=== PATIENT | female | born 1960 | race Hispanic/Latino ===

== ENCOUNTER → 2018-08-15 | Outpatient (CLI) | payer BC ==
[~2018-08-15] MED LIST: vit e PO
--- NOTE | 2018-08-15 10:25 | Diagnostic Imaging Report ---
PROCEDURE:X-RAY ABDOMEN - KUB COMPARISON:KUB 08/10/2018. INDICATIONS:calculus of kidney DISCUSSION: A 1.2 cm calculus projects over the lower pole of the right renal shadow. No additional calcifications project over the kidneys, expected ureteral course, or bladder. Bilateral tubal ligation devices are again noted. Bowel gas pattern is nonobstructive. No acute bony abnormality. Dextroscoliosis of the lumbar spine. IMPRESSION: Similar appearance of 1.2 cm right renal calculus. Dictated by: HENRY PAN M.D. on 08/15/2018 at 10:34 Electronically approved by: HENRY PAN M.D. on 08/15/2018 at 10:34
== END ==
LOC: RAD 09:33
PROVIDERS: ATTEND Urology
DX: N20.0 Calculus of kidney (principal)
CPT/HCPCS: 74018

== ENCOUNTER → 2018-08-24 | Day surgery (SDC) | payer BC ==
[~2018-08-24] MED LIST changes: +CEFTRIAXONE SOD 1 GM VIAL ONE; +DESFLURANE 240 ML BTL INH ONE; +DEXAMETHASONE SOD PHOS INJ 4 MG/ML VIAL ONE; +FENTANYL CITRATE/PF 100MCG/2 ML INJ ONE; +LIDOCAINE HCL 2% LOCAL INJ 5 ML SDV VIAL INJ ONE; +MIDAZOLAM HCL 2 MG/2 ML VIAL ONE; +ONDANSETRON HCL INJ 2 MG/ML VIAL ONE; +PROPOFOL IV EMULSION 10 MG/ML 20 ML VIAL ONE; +ROCURONIUM BROMIDE 10 MG/ML 5ML VIAL ONE
--- OUTSIDE RECORDS SUMMARY | 2018-08-24 11:28 | XMS REPORT ---
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 Allergies, Adverse Reactions, Alerts This patient has no known allergies or adverse reactions. Medications This patient has no known medications. Results Test Description Test Time Test Comments Text Results Atomic Results Result Comments ABDOMEN-1VIEW (KUB) 2018-08-15 10:34:00 [place] [address] Patient Name: FEROZ WATTS MR #: [id number] : 1960 Age/Sex: 58/F Req #: [id number] Adm Physician: Ordered by: ANNAMARIA GARIBAY MD Report #: [id number] Location: [facility] Room/Bed: Procedure: [id number] DX/ABDOMEN-1VIEW (KUB) Exam Date: Exam Time: REPORT STATUS: Signed PROCEDURE: X-RAY ABDOMEN - KUB COMPARISON: KUB 08/10/2018. INDICATIONS: calculus of kidney DISCUSSION: A 1.2 cm calculus projects over the lower pole of the right renal shadow. No additional calcifications project over the kidneys, expected ureteral course, or bladder. Bilateral tubal ligation devices are again noted. Bowel gas pattern is nonobstructive. No acute bony abnormality. Dextroscoliosis of the lumbar spine. IMPRESSION: Similar appearance of 1.2 cm right renal calculus. Dictated by: HENRY PAN M.D. on 08/15/2018 at 10:34 Electronically approved by: HENRY PAN M.D. on 08/15/2018 at 10:34 Dictated By: HENRY PAN MD [id number] Transcribed By: JEAN on 08/15/18 1034 COPY TO: ANNAMARIA GARIBAY MD ABDOMEN-1VIEW (KUB) 2018-08-10 13:26:00 [place] [address] Patient Name: FEROZ WATTS MR #: [id number] : 1960 Age/Sex: 58/F Req #: [id number] Adm Physician: Ordered by: ANNAMARIA GARIBAY MD Report #: [id number] Location: [facility] Room/Bed: Procedure: [id number] DX/ABDOMEN-1VIEW (KUB) Exam Date: 08/10/18 Exam Time: 1130 REPORT STATUS: Signed Exam: Abdominal film Clinical History: Renal calculus Comparison: None. DISCUSSION: 1.2 cm ovoid calculus projects over the lower pole of the right renal shadow. No additional calcifications project over the renal shadows or expected ureteral courses. Bilateral tubal ligation devices are noted particularly over the pelvis. Bowel gas pattern is nonobstructive. No mass effect or organomegaly. Regional skeletal structures are intact. Dextroscoliosis of the lumbar spine. IMPRESSION: 1.2 cm right renal calculus. Signed by: Dr. Sienna Galvan M.D. on 08/10/2018 1:29 PM Dictated By: SIENNA GALVAN MD 28 Transcribed By: NICOLAS on 08/10/181328 COPY TO: ANNAMARIA GARIBAY MD Mammo Digital Mammography Screening 2018-07-14 12:13:27 CLINICAL INDICATION: This is a routine annual screening mammogram. The patient has no complaints.MODALITY: Siemens Inspiration Full Field Digital MammographyTECHNIQUE: Digital acquisition of the breasts is performed on the ACR accredited Full Field Digital Mammography Unit. Computer Assisted Detection (CAD) is then accomplished using [employer]. Imaging of the bilateral breasts is performed.FINDINGS:COMPARISON STUDY: NoneThe breasts are heterogeneously dense. This may lower the sensitivity of mammography. There are no suspicious masses, calcifications or architectural distortion in either breast.IMPRESSION:No mammographic evidence of malignancy. RECOMMENDATION: Routine annual screening mammogram in 1 year is recommended.Category: BIRADS 1 - Negative. For internal use only N:12
--- NOTE | 2018-08-24 14:46 | Operative Report ---
DATE OF PROCEDURE: August 24, 2018 PREOPERATIVE DIAGNOSIS: Right kidney stone. POSTOPERATIVE DIAGNOSIS: Right kidney stone. PROCEDURES PERFORMED 1. Staged right-sided shockwave lithotripsy. 2. Supervision of fluoroscopy. ANESTHESIA: General. ESTIMATED BLOOD LOSS: Minimal. COMPLICATIONS: None. INDICATIONS: Ms. Murphy is a 58-year-old female found to have a right-sided kidney stone. She and I had a long discussion regarding the alternatives, risks and benefits including doing nothing, shockwave lithotripsy, ureteroscopy, percutaneous surgery and open surgery. She voiced understanding of the options and alternatives, the risks and the benefits and elected to proceed. PROCEDURE IN DETAIL: After informed consent was obtained, the patient was taken to the operative suite and placed supine on the operative table, underwent general anesthesia by the anesthesia services. The stone was localized in the X, Y, and Z planes. A treatment was performed per treatment report. Patient tolerated the procedure well and was transported to the recovery room in excellent condition. SUPERVISION OF FLUOROSCOPY: I was present throughout the entire procedure and supervised fluoroscopy. There was no radiologist present. Fluoroscopy was performed per treatment report. Job#: [id number] cc:SHIREEN MARTINES MD
[2018-08-24 15:20] VITALS: BP 125/68
== END | disposition home or self-care (01) ==
LOC: OR 11:26
PROVIDERS: ATTEND Urology
DX: N20.0 Calculus of kidney (principal); N39.0 Urinary tract infection, site not specified; I10 Essential (primary) hypertension; R31.29 Other microscopic hematuria; Z01.810 Encounter for preprocedural cardiovascular examination
CPT/HCPCS: 50590; 93005; J0696; J1100; J2001; J2250; J2405; J2704

== ENCOUNTER → 2018-09-26 | Outpatient (CLI) | payer BC ==
[~2018-09-26] MED LIST changes: -CEFTRIAXONE SOD 1 GM VIAL ONE; -DESFLURANE 240 ML BTL INH ONE; -DEXAMETHASONE SOD PHOS INJ 4 MG/ML VIAL ONE; -FENTANYL CITRATE/PF 100MCG/2 ML INJ ONE; -LIDOCAINE HCL 2% LOCAL INJ 5 ML SDV VIAL INJ ONE; -MIDAZOLAM HCL 2 MG/2 ML VIAL ONE; -ONDANSETRON HCL INJ 2 MG/ML VIAL ONE; -PROPOFOL IV EMULSION 10 MG/ML 20 ML VIAL ONE; -ROCURONIUM BROMIDE 10 MG/ML 5ML VIAL ONE
--- NOTE | 2018-09-26 11:25 | Diagnostic Imaging Report ---
PROCEDURE:X-RAY ABDOMEN - KUB COMPARISON:None. INDICATIONS:CALCULUS OF KIDNEY FINDINGS: There are no dilated loops of bowel to suggest obstruction. There are no masses or abnormal calcifications. There is no evidence of free air. No acute osseous abnormalities are present. CONCLUSION: No acute abdominal abnormality. Michael Viramontes D.O. Dictated by: Michael Viramontes D.O. on 09/26/2018 at 11:35 Electronically approved by: Michael Viramontes D.O. on 09/26/2018 at 11:35
== END ==
LOC: RAD 09:39
PROVIDERS: ATTEND Urology
DX: N20.0 Calculus of kidney (principal)
CPT/HCPCS: 74018

== ENCOUNTER → 2018-12-26 | Outpatient (CLI) | payer BC ==
--- NOTE | 2018-12-26 11:40 | Diagnostic Imaging Report ---
Abdomen, two views dated 12/26/2018 at 10:14 AM. History: Renal stones. Comparison: 09/26/2018 Findings: The intestinal gas pattern is nonobstructive. There no masses or abnormal calcifications. Previously described stone overlying the right kidney not apparent on this study. There are tubal ligation clips overlying the pelvis. The osseous structures reveal mild lumbar scoliosis. IMPRESSION: No acute abdominal abnormality. Signed by: Dr. Michael Viramontes DO on 12/26/2018 11:37 AM
== END ==
LOC: RAD 09:58
PROVIDERS: ATTEND Urology
DX: N20.0 Calculus of kidney (principal)
CPT/HCPCS: 74018

== ENCOUNTER → 2019-04-06 | Outpatient (CLI) | payer BC ==
--- NOTE | 2019-04-06 12:38 | Diagnostic Imaging Report ---
Abdomen, one view. History: Stone follow-up. Comparison: 12/26/2018 Findings: The intestinal gas pattern is nonobstructive. There is a tiny interpolar left renal stone. There no masses. Bilateral tubal ligation clips. The osseous structures again reveal scoliosis IMPRESSION: Tiny interpolar left renal stone. Signed by: Dr. Michael Viramontes DO on 04/06/2019 12:35 PM
== END ==
LOC: RAD 10:05
PROVIDERS: ATTEND Urology
DX: N20.0 Calculus of kidney (principal)
CPT/HCPCS: 74018